=== PATIENT | male | born 1950 | race Caucasian/White ===

== ENCOUNTER 2017-11-07 17:27 | Emergency (ER) | payer MEDICARE, OTHER ==
[~2017-11-07 17:27] MED LIST: CA CHLORIDE 10% 10 ML SYRINGE; DEXTROSE 50% 50 ML SYRINGE; EPINEPHrine 0.1 MG/ML SYG; NA BICARBONATE 8.4% 50 ML SYG
== END 2017-11-07 22:00 | disposition expired ==
LOC: E/R 17:27
DX: I46.9 Cardiac arrest, cause unspecified (principal); F17.210 Nicotine dependence, cigarettes, uncomplicated; J44.9 Chronic obstructive pulmonary disease, unspecified; I25.10 Atherosclerotic heart disease of native coronary artery without angina pectoris; E11.22 Type 2 diabetes mellitus with diabetic chronic kidney disease; N18.9 Chronic kidney disease, unspecified; I12.9 Hypertensive chronic kidney disease with stage 1 through stage 4 chronic kidney disease, or unspecified chronic kidney disease; Z95.0 Presence of cardiac pacemaker; Z98.61 Coronary angioplasty status; Z79.4 Long term (current) use of insulin; Z79.82 Long term (current) use of aspirin
CPT/HCPCS: 36680; 82962; 92950; 99285-25